=== PATIENT | male | born 1970 | race Caucasian/White ===

== ENCOUNTER 2020-10-15 11:08 | Emergency (ER) | payer OTHER ==
[~2020-10-15] VITALS: Ht 170.2 cm; Wt 66.7 kg
[2020-10-15] MEDS ORDERED: LET TOPICAL SOLUTION 8 ML UDC TP ONE (11:45)
[2020-10-15] MEDS ORDERED: LIDOCAINE HCL 2% 20 ML VIAL TP ONE (11:45)
[2020-10-15] MEDS ORDERED: SODIUM BICARBONATE 4.2 % (NEUT) 5 ML VIAL TP ONE (11:45)
[2020-10-15] MEDS ORDERED: LIDOCAINE 2%-EPI 1:100,000 20 ML VIAL ONE (11:50)
[2020-10-15] MEDS ORDERED: LET TOPICAL SOLUTION 8 ML UDC ONE (11:50)
[2020-10-15] MEDS ORDERED: SODIUM BICARBONATE 4.2 % (NEUT) 5 ML VIAL ONE (11:50)
[2020-10-15] MEDS ORDERED: NEOMY/BACITRA/POLYMYXIN B OINT UD PACKET TP ONE (11:59)
--- NOTE | 2020-10-15 12:24 | NUR ---
Patient discharged to home in stable condition. Written and verbal after care instructions given. Patient verbalizes understanding of instructions. Stressed follow up or return to ER for worsening s/s.
== END 2020-10-15 12:30 | disposition home or self-care (01) ==
LOC: ER 11:08
DX: S71.111A Laceration without foreign body, right thigh, initial encounter (principal); W26.0XXA Contact with knife, initial encounter; Y92.89 Other specified places as the place of occurrence of the external cause
CPT/HCPCS: 12005; 99282; J3490; A4217; A4663

== ENCOUNTER 2020-10-19 11:15 | Emergency (ER) | payer OTHER ==
[~2020-10-19] VITALS: Ht 172.7 cm; Wt 72.6 kg
== END 2020-10-19 11:23 | disposition home or self-care (01) ==
LOC: ER 11:15
DX: S71.111D Laceration without foreign body, right thigh, subsequent encounter (principal); W45.8XXD Other foreign body or object entering through skin, subsequent encounter
CPT/HCPCS: A4663

== ENCOUNTER 2020-10-29 11:37 | Emergency (ER) | payer OTHER ==
[~2020-10-29] VITALS: Ht 170.2 cm; Wt 66.7 kg
--- NOTE | 2020-10-29 13:27 | NUR ---
JOANNE REMOVED BY DR MCPHERSON. DISCHARGE INSTRUCTIONS GIVEN PER MD ORDER.
[2020-10-29 13:28] VITALS: BP 109/75
== END 2020-10-29 13:29 | disposition home or self-care (01) ==
LOC: ER 11:42
DX: S81.812D Laceration without foreign body, left lower leg, subsequent encounter (principal); X58.XXXD Exposure to other specified factors, subsequent encounter
CPT/HCPCS: A4663